=== PATIENT | female | born 1960 | race Caucasian/White ===

== ENCOUNTER → 2018-12-01 | Outpatient (CLI) | payer OTHER | END | disposition home or self-care (01) | LOC: CFH 11:38 | PROVIDERS: ATTEND Nurse Practitioner Primary Care | DX: N63.21 Unspecified lump in the left breast, upper outer quadrant (principal); R59.9 Enlarged lymph nodes, unspecified | CPT/HCPCS: 76641; 77066; G0279 ==

== ENCOUNTER 2018-12-03 07:51 | Outpatient (CLI) | payer OTHER ==
[2018-12-03] MEDS ORDERED: LIDOCAINE 1%, 20ML ONE (09:31)
[2018-12-03] MEDS ORDERED: LIDOCAINE 1%-EPI 1:100K, 20ML ONE (09:31)
[2018-12-03] MEDS ORDERED: SODIUM BICARBONATE 4.0%, 5ML ONE (09:31)
[2018-12-18] MEDS ORDERED: MULT-717 PO (08:51)
[2018-12-18] MEDS ORDERED: OLME20TA17 PO (08:51)
[2018-12-18] MEDS ORDERED: MIRT30TA4 PO (08:51)
[2018-12-18] MEDS ORDERED: VENL150C PO (08:51)
[2018-12-18] MEDS ORDERED: CHOL500015 PO (08:51)
[2018-12-18] MEDS ORDERED: VENL75CA PO (08:51)
[2018-12-18] MEDS ORDERED: METF500T17 PO (08:51)
== END 2018-12-03 23:59 | disposition home or self-care (01) ==
LOC: CFH 07:51
PROVIDERS: ATTEND Nurse Practitioner Primary Care
DX: C50.912 Malignant neoplasm of unspecified site of left female breast (principal); C77.3 Secondary and unspecified malignant neoplasm of axilla and upper limb lymph nodes
CPT/HCPCS: 19083; 38505; 76942; 77065; 88305; 88341; 88342; 88360; J3490; 19285

== ENCOUNTER 2018-12-21 06:58 | Day surgery (SDC) | payer OTHER ==
[2018-12-18 09:30] LABS: ALANINE AMINOTRANSFERASE 33 U/L (12-78); ALBUMIN 4.2 g/dL (3.4-5.0); ANION GAP 6 mmol/L (5-15); CALCIUM 9.4 mg/dL (8.5-10.1); CHLORIDE 102 mmol/L (98-107); CREATININE 0.93 mg/dL (0.55-1.02)
[2018-12-18 09:32] LABS: ALKALINE PHOSPHATASE 91 U/L (45-117); BILIRUBIN,TOTAL 0.5 mg/dL (0.2-1.0); TOTAL PROTEIN 7.8 g/dL (6.4-8.2)
[~2018-12-21] VITALS: Ht 162.6 cm; Wt 70.3 kg
[~2018-12-21 06:58] MED LIST: BUPIVACAINE/PF-EPI 0.5% 1:200K ONE; CHOL500015 PO; HEPARIN 1,000 UNITS/ML, 10ML ONE; METF500T17 PO; MIRT30TA4 PO; MULT-717 PO; OLME20TA17 PO; VENL150C PO; VENL75CA PO
[2018-12-21] MEDS ORDERED: LACTATED RINGERS 1,000 ML IV SCH (07:27)
[2018-12-21 07:49] VITALS: BP 116/75
[2018-12-21] MEDS ORDERED: MIDAZOLAM 1 MG/ML, 2ML ONE (09:11)
[2018-12-21] MEDS ORDERED: FENTANYL PF 100 MCG/2ML ONE ×2 (09:11→13:15)
[2018-12-21] MEDS ORDERED: LIDOCAINE-MPF 2% ,5ML ONE (09:12)
[2018-12-21] MEDS ORDERED: PROPOFOL 10 MG/ML, 20ML ONE (09:12)
[2018-12-21] MEDS ORDERED: DEXAMETHASONE 4 MG/ML, 5ML ONE (09:22)
[2018-12-21] MEDS ORDERED: ONDANSETRON 2MG/ML, 2ML ONE ×2 (09:22)
[2018-12-21] MEDS ORDERED: CLINDAMYCIN 150 MG/ML, 6ML ONE (09:46)
[2018-12-21] MEDS ORDERED: KETOROLAC 30 MG/1 ML ONE (09:49)
[2018-12-21] MEDS ORDERED: HYDROmorphone 2 MG/ML, 1ML IVPush PRN (10:30)
[2018-12-21] MEDS ORDERED: FENTANYL PF 100 MCG/2ML IV PRN (10:30)
[2018-12-21] MEDS ORDERED: hydrALAzine 20 MG/ML, 1ML IV PRN (10:30)
[2018-12-21] MEDS ORDERED: OXYcodone 5 MG/5 ML ORAL.SOL UDC PO PRN (10:30)
[2018-12-21] MEDS ORDERED: MEPERIDINE/PF 25MG/0.5ML IVPush PRN (10:30)
[2018-12-21] MEDS ORDERED: HALOPERIDOL 5 MG/ML IV PRN (10:30)
[2018-12-21] MEDS ORDERED: PROMETHAZINE 25 MG/ML, 1ML IV PRN (10:30)
[2018-12-21] MEDS ORDERED: ACETAMINOPHEN 325 MG TABLET PO PRN (10:30)
[2018-12-21] MEDS ORDERED: LIDOCAINE 1%, 20ML ONE (13:06)
[2018-12-21] MEDS ORDERED: NALOXONE 1 MG/ML, 2ML ONE (13:15)
[2018-12-21] MEDS ORDERED: MIDAZOLAM 1 MG/ML, 5ML ONE (13:15)
[2018-12-21] MEDS ORDERED: FLUMAZENIL 0.1 MG/1 ML, 5ML ONE (13:15)
== END 2018-12-21 16:25 | disposition home or self-care (01) ==
LOC: OUT 06:58
PROVIDERS: ATTEND Surgery
DX: Z45.2 Encounter for adjustment and management of vascular access device (principal); C50.912 Malignant neoplasm of unspecified site of left female breast; F41.9 Anxiety disorder, unspecified; E11.9 Type 2 diabetes mellitus without complications; I10 Essential (primary) hypertension; Z79.84 Long term (current) use of oral hypoglycemic drugs; Z98.890 Other specified postprocedural states; Z98.51 Tubal ligation status; Z87.891 Personal history of nicotine dependence
CPT/HCPCS: 36415; 36561; 71045; 76937; 77001; 80053; 82962; 93005; 99156; 99157; C1788; C1894; J1100; J1642; J1644; J1885; J2250; J2405; J2704; J3010; J3490; J7120; J2310

== ENCOUNTER → 2018-12-23 | Outpatient (CLI) | payer OTHER ==
[~2018-12-23] MED LIST changes: -BUPIVACAINE/PF-EPI 0.5% 1:200K ONE; -HEPARIN 1,000 UNITS/ML, 10ML ONE; +OMNIPAQUE 350 MG/ML, 100ML BOTTLE ONE
== END | disposition home or self-care (01) ==
LOC: PETCFH 09:20
PROVIDERS: ATTEND Internal Medicine Hematology & Oncology
DX: C50.412 Malignant neoplasm of upper-outer quadrant of left female breast (principal)
CPT/HCPCS: 71260; 74177; 78306; A9503; Q9967

== ENCOUNTER → 2019-04-27 | Outpatient (CLI) | payer OTHER ==
[~2019-04-27] MED LIST changes: -OMNIPAQUE 350 MG/ML, 100ML BOTTLE ONE
== END | disposition home or self-care (01) ==
LOC: CVU 14:48
PROVIDERS: ATTEND Internal Medicine Hematology & Oncology
DX: C50.412 Malignant neoplasm of upper-outer quadrant of left female breast (principal); I08.3 Combined rheumatic disorders of mitral, aortic and tricuspid valves; Z92.21 Personal history of antineoplastic chemotherapy
CPT/HCPCS: 0399T; 93306

== ENCOUNTER 2019-05-03 06:39 | Day surgery (SDC) | payer OTHER ==
[~2019-05-03] VITALS: Ht 162.6 cm; Wt 67.1 kg
[2019-05-03] MEDS ORDERED: EPINEPHRINE 1 MG/ML, 1ML ONE (06:50)
[2019-05-03] MEDS ORDERED: BUPIVACAINE/PF 0.5% ONE (06:50)
[2019-05-03] MEDS ORDERED: LACTATED RINGERS 1,000 ML IV SCH (07:54)
[2019-05-03 07:57] VITALS: BP 131/81
[2019-05-03] MEDS ORDERED: LIDOCAINE 1%, 20ML ONE (08:15)
[2019-05-03] MEDS ORDERED: MIDAZOLAM 1 MG/ML, 2ML ONE (08:40)
[2019-05-03] MEDS ORDERED: FENTANYL PF 100 MCG/2ML ONE (08:40)
[2019-05-03] MEDS ORDERED: ISOSULFAN BLUE 10 MG/ML, 5ML IV ONE (08:51)
[2019-05-03 09:56] LABS: ALBUMIN 3.9 g/dL (3.4-5.0); ANION GAP 9 mmol/L (5-15); CALCIUM 8.7 mg/dL (8.5-10.1); CHLORIDE 108 mmol/L (98-107)
[2019-05-03] MEDS ORDERED: KETOROLAC 30 MG/1 ML IV PRN (10:00)
[2019-05-03] MEDS ORDERED: OXYcodone 5 MG/5 ML ORAL.SOL UDC PO PRN (10:00)
[2019-05-03] MEDS ORDERED: FENTANYL PF 100 MCG/2ML IV PRN (10:00)
[2019-05-03] MEDS ORDERED: MEPERIDINE/PF 25MG/0.5ML IVPush PRN (10:00)
[2019-05-03] MEDS ORDERED: PROMETHAZINE 25 MG/ML, 1ML IV PRN (10:00)
[2019-05-03] MEDS ORDERED: hydrALAzine 20 MG/ML, 1ML IV PRN (10:00)
[2019-05-03] MEDS ORDERED: LABETALOL 5MG/ML, 20ML IV PRN (10:00)
[2019-05-03] MEDS ORDERED: HYDROmorphone 2 MG/ML, 1ML IVPush PRN (10:00)
[2019-05-03] MEDS ORDERED: ACETAMINOPHEN 325 MG TABLET PO PRN (10:00)
[2019-05-03] MEDS ORDERED: DIAZEPAM 5 MG/ML, 2ML IVPush PRN (10:00)
[2019-05-03] MEDS ORDERED: ALBUTEROL SULFATE 2.5 MG/3 ML NPPB PRN (10:00)
[2019-05-03 10:02] LABS: ALANINE AMINOTRANSFERASE 18 U/L (12-78); ALKALINE PHOSPHATASE 61 U/L (45-117); BILIRUBIN,TOTAL 0.6 mg/dL (0.2-1.0); CREATININE 0.59 mg/dL (0.55-1.02); TOTAL PROTEIN 6.5 g/dL (6.4-8.2)
[2019-05-03] MEDS ORDERED: CEFAZOLIN 1,000 MG ONE (10:21)
[2019-05-03] MEDS ORDERED: DEXAMETHASONE 4 MG/ML, 1ML ONE (10:21)
[2019-05-03] MEDS ORDERED: ONDANSETRON 2MG/ML, 2ML ONE (10:21)
[2019-05-03] MEDS ORDERED: PROPOFOL 10 MG/ML, 20ML ONE (10:21)
[2019-05-03] MEDS ORDERED: EPHEDRINE 50 MG/ML, 1ML IVPush PRN (10:30)
[2019-05-03] MEDS ORDERED: PROPOFOL 10 MG/ML, 50ML ONE (10:54)
== END 2019-05-03 11:45 | disposition home or self-care (01) ==
LOC: SDC 06:39 → EDSTATUS 09:30 → SDC 11:45
PROVIDERS: ATTEND Surgery
DX: C50.412 Malignant neoplasm of upper-outer quadrant of left female breast (principal); N60.32 Fibrosclerosis of left breast; I10 Essential (primary) hypertension; E11.9 Type 2 diabetes mellitus without complications; F41.9 Anxiety disorder, unspecified; M19.90 Unspecified osteoarthritis, unspecified site; G89.4 Chronic pain syndrome; Z17.0 Estrogen receptor positive status [ER+]; Z79.84 Long term (current) use of oral hypoglycemic drugs; Z79.899 Other long term (current) drug therapy; Z87.891 Personal history of nicotine dependence; Z92.21 Personal history of antineoplastic chemotherapy; Z98.51 Tubal ligation status; Z98.890 Other specified postprocedural states; Z80.3 Family history of malignant neoplasm of breast
CPT/HCPCS: 19301; 36415; 38525; 38792; 76098; 80053; 82962; 88307; A9541; C9898; J0171; J0690; J1100; J2250; J2405; J2704; J3010; J7120

== ENCOUNTER 2019-06-11 07:40 | Outpatient (CLI) | payer OTHER | END 2019-06-11 23:59 | disposition home or self-care (01) | LOC: ROC 07:40 | PROVIDERS: ATTEND Radiology Radiation Oncology | DX: C50.912 Malignant neoplasm of unspecified site of left female breast (principal) | CPT/HCPCS: 99214; G0463 ==

== ENCOUNTER → 2019-11-17 | Outpatient (CLI) | payer OTHER ==
[~2019-11-17] MED LIST changes: +OMNIPAQUE 350 MG/ML, 100ML BOTTLE ONE
== END | disposition home or self-care (01) ==
LOC: CFH 08:07
PROVIDERS: ATTEND Internal Medicine Hematology & Oncology
DX: C50.412 Malignant neoplasm of upper-outer quadrant of left female breast (principal); E04.1 Nontoxic single thyroid nodule; J98.4 Other disorders of lung; M51.34 Other intervertebral disc degeneration, thoracic region; K76.0 Fatty (change of) liver, not elsewhere classified; I70.0 Atherosclerosis of aorta; K57.30 Diverticulosis of large intestine without perforation or abscess without bleeding
CPT/HCPCS: 71260; 74177; Q9967

== ENCOUNTER → 2019-11-29 | Outpatient (CLI) | payer OTHER ==
[~2019-11-29] MED LIST changes: -OMNIPAQUE 350 MG/ML, 100ML BOTTLE ONE
== END | disposition home or self-care (01) ==
LOC: CFH 09:09
PROVIDERS: ATTEND Internal Medicine Hematology & Oncology
DX: Z85.3 Personal history of malignant neoplasm of breast (principal)
CPT/HCPCS: 76642; 77066; G0279

== ENCOUNTER → 2019-12-16 | Outpatient (CLI) | payer OTHER | END | disposition home or self-care (01) | LOC: ROC 09:00 | PROVIDERS: ATTEND Radiology Radiation Oncology | DX: C50.412 Malignant neoplasm of upper-outer quadrant of left female breast (principal) | CPT/HCPCS: 99212; G0463 ==

== ENCOUNTER → 2020-02-04 | Outpatient (CLI) | payer OTHER | END | disposition home or self-care (01) | LOC: CFH 12:12 | PROVIDERS: ATTEND Internal Medicine Hematology & Oncology | DX: C50.412 Malignant neoplasm of upper-outer quadrant of left female breast (principal); I51.89 Other ill-defined heart diseases | CPT/HCPCS: 93306 ==

== ENCOUNTER 2020-04-21 09:04 | Outpatient (CLI) | payer OTHER | END 2020-04-21 23:59 | disposition home or self-care (01) | LOC: CFH 09:04 | PROVIDERS: ATTEND Surgery | DX: N64.4 Mastodynia (principal) | CPT/HCPCS: 76642; 77065; G0279 ==

== ENCOUNTER → 2020-06-06 | Outpatient (CLI) | payer OTHER | END | disposition home or self-care (01) | LOC: CFH 07:02 | PROVIDERS: ATTEND Surgery | DX: Z09 Encounter for follow-up examination after completed treatment for conditions other than malignant neoplasm (principal) | CPT/HCPCS: 76536 ==

== ENCOUNTER 2020-07-25 13:21 | Outpatient (CLI) | payer OTHER ==
[2020-07-25] MEDS ORDERED: OMNIPAQUE 350 MG/ML, 100ML BOTTLE ONE (16:02)
== END 2020-07-25 23:59 | disposition home or self-care (01) ==
LOC: CFH 13:21
PROVIDERS: ATTEND Surgery
DX: E04.1 Nontoxic single thyroid nodule (principal); M50.321 Other cervical disc degeneration at C4-C5 level; Z18.9 Retained foreign body fragments, unspecified material
CPT/HCPCS: 70491; 82565; Q9967

== ENCOUNTER → 2020-12-25 | Outpatient (CLI) | payer OTHER | END | disposition home or self-care (01) | LOC: CFH 12:13 | PROVIDERS: ATTEND Internal Medicine Hematology & Oncology | DX: C50.412 Malignant neoplasm of upper-outer quadrant of left female breast (principal); R23.4 Changes in skin texture | CPT/HCPCS: 77062; 77066; G0279 ==